=== PATIENT | male | born 1980 | race Caucasian/White ===

== ENCOUNTER → 2016-10-03 | Outpatient (CLI) | payer OTHER | LOC: COL.LAB 10:26 | DX: Z01.89 Encounter for other specified special examinations (principal) ==

== ENCOUNTER 2021-08-24 07:36 | Day surgery (SDC) | payer BC ==
[~2021-08-24] VITALS: Ht 175.3 cm; Wt 79.7 kg
--- NOTE | 2021-08-24 07:53 | NUR ---
PATEINT AND AMBULATED INTO ENDO UNIT WITH STEADY GAIT. PATIENT IS ALERT AND ORIENTED X 3. CONSENT EXPLAINED AND PATIENT SIGNED. PATIENT HAS HEMAPHILIA. 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 HISTORY COMPLETED. ASSESSMENT COMPLETED. LUNGS CTA. HEART S1S2 AND REGULAR. BOWEL SOUNDS HEARD. PULSES FELT. SEE PROCESS INTERVENTION FOR IV START.
[2021-08-24] MEDS ORDERED: PRIL40 PO (08:05)
[2021-08-24] MEDS ORDERED: [UNRECOGNIZED DRUG - OTHER] IV (08:07)
[2021-08-24] MEDS ORDERED: LYSTEDA650 MG PO (08:09)
[2021-08-24 09:13] VITALS: BP 115/64; PULSE 56; TEMP 97.8
[2021-08-24 09:30] VITALS: BP 117/77; PULSE 57
--- NOTE | 2021-08-24 09:30 | NUR ---
PATIENT TRANSPORTED PER CART FROM ENDO SUITE TO BAY 2 ACCOMPANIED BY ENDO RN. PATIENT TALKING WITH NURSE. PATIENT AMBULATED FROM CART TO CHAIR WITH SLOW STEADY GAIT. IN ROOM. MONITORS REAPPLIED. VSS ON ROOM AIR. PATIENT TALKS WITH STAFF. VERBAL REPORT RECEIVED. 0912 PATIENT GIVEN JUICE AND MUFFIN TO EAT. DENIES DISCOMFORT AND NAUSEA.
[2021-08-24 09:45] VITALS: BP 121/81; PULSE 53; TEMP 97.8
--- NOTE | 2021-08-24 09:50 | NUR ---
VSS ON ROOM AIR. PATIENT TALKS WITH . DENIES PROBLEMS. TOLERATES JUICE AND MUFFIN WITHOUT PROBLEMS.
[2021-08-24 10:00] VITALS: BP 117/76; PULSE 60
[2021-08-24 10:15] VITALS: BP 113/93; PULSE 49
--- NOTE | 2021-08-24 10:15 | NUR ---
VSS ON ROOM AIR. PT TALKING WITH . DR STUBBS IN AND SPEAKS WITH PATEINT AND . 1016 IV DC'D WITH CATHETER TIP INTACT. PRESSURE AND BANDAGE APPLIED. 1018 DISCHARGE INSTRUCTIONS GIVEN VERBAL AND DISCHARGE PACKET PROVIDED. QUESTIONS ANSWERED AND PATIENT VOICED UNDERSTANDING. PATIENT CHANGES INTO STREET CLOTHES. 1022 PATIENT DISCHARGE PER WHEEL CHAIR ACCOMPANIED BY AMB RN AND TO PRIVATE VECHILE DRIVEN BY .
== END 2021-08-24 11:00 | disposition home or self-care (01) ==
LOC: SDCO 07:36
DX: R19.7 Diarrhea, unspecified (principal); K64.0 First degree hemorrhoids; K21.00 Gastro-esophageal reflux disease with esophagitis, without bleeding; Z79.899 Other long term (current) drug therapy
CPT/HCPCS: J2704; J3010; J7120